=== PATIENT | female | born 1985 ===

== ENCOUNTER → 2021-04-15 09:12 | Outpatient (BNVA) | payer OTHER, SELFPAY | PROVIDERS: PCP Nurse Practitioner Family; Visit Provider Physician Assistant | DX: E11.9 Type 2 diabetes mellitus without complications (principal); E66.01 Morbid (severe) obesity due to excess calories; E78.00 Pure hypercholesterolemia, unspecified; I10 Essential (primary) hypertension | CPT/HCPCS: 99212 ==

== ENCOUNTER 2021-04-26 11:37 | Outpatient (REF) | payer OTHER, SELFPAY ==
--- NOTE | ~2021-04-26 | XR_ITS ---
EXAMINATION: XR CHEST CLINICAL INFORMATION: Obesity COMPARISON: Previous chest x-ray January 2019 TECHNIQUE: 2 views of the chest were obtained. FINDINGS: No significant abnormality is noted involving the heart, lungs, mediastinum, bony thorax or soft tissues. XR/XR chest 2V IMPRESSION: Unremarkable examination.
--- NOTE | 2021-04-26 11:46 | ECG_ITS ---
Test Reason : OBESITY Blood Pressure : / mmHG Vent. Rate : 077 BPM Atrial Rate : 077 BPM P-R Int : 148 ms QRS Dur : 138 ms QT Int : 446 ms P-R-T Axes : 041 -30 073 degrees QTc Int : 504 ms Normal sinus rhythm Left axis deviation Left bundle branch block Abnormal ECG When compared with ECG of 08-JAN-2019 08:44, Left bundle branch block is now Present Referred By: Nayeli Rice Electronically Signed By:Perry Dejesus
[2021-04-26 13:21] LABS: MANUAL DIFF FLAG NO
[2021-04-26 13:27] LABS: Basophils Percent Auto 0.4 % (0-2); Eosinophils Absolute Auto 0.1 X10*3/uL (0.0-0.4); Eosinophils Percent Auto 1.6 % (0-4); Hematocrit 37.5 % (37-47); Hemoglobin 12.2 g/dl (12.0-16.0); Imm Gran Abs Auto 0.01 X10*3/uL (0.00-0.03); Imm Gran Pct Auto 0.2 % (0.0-0.4); Lymphocytes Absolute Auto 1.7 X10*3/uL (1.2-4.9); Lymphocytes Percent Auto 35.4 % (20-40); Mean Corpuscular HGB Conc 32.5 g/dl (31.0-35.0); Mean Corpuscular Hemoglobin 28.5 pg (27.0-33.0); Mean Corpuscular Volume 87.6 fL (80-98); Mean Platelet Volume 11.7 fL (9.4-12.3); Monocytes Absolute Auto 0.3 X10*3/uL (0.1-1.2); Monocytes Percent Auto 5.9 % (2-11); Neutrophils Absolute Auto 2.8 X10*3/uL (2.0-8.3); Neutrophils Percent Auto 56.5 % (45-73); Platelet Count 206 X10*3/uL (160-400); Red Blood Count 4.28 X10*6/uL (4.20-5.50); White Blood Count 4.9 X10*3/uL (4.8-10.8)
[2021-04-26 13:36] LABS: Estimated Average Glucose 160 mg/dL; Hemoglobin A1c % 7.2 %
[2021-04-26 13:44] LABS: Alanine Aminotransferase 28 U/L (0-31); Albumin Level 4.3 g/dL (3.5-5.0); Alkaline Phosphatase 59 U/L (39-117); Anion Gap 12 (12-20); Aspartate Amino Transferase 23 U/L (5-31); Bilirubin Total 0.6 mg/dL (0.0-1.0); Blood Urea Nitrogen 7 mg/dL (9-16); C Reactive Protein 0.35 mg/dL (< or = 0.50); Calcium 9.1 mg/dL (8.4-10.2); Carbon Dioxide 27 mmol/L (22-29); Chloride 104 mmol/L (96-108); Cholesterol 234 mg/dL; Estimated Glomerular Filt Rate > 60; Glucose Random 105 mg/dL (60-115); HDL Cholesterol 39 mg/dL; Iron 49 mcg/dL (30-160); LDL Cholesterol Calculated 123 mg/dl; Percent Iron Saturation 13 % (15-50); Potassium 3.7 mmol/L (3.3-5.1); Sodium 139 mmol/L (135-145); Total Iron Binding Capacity 379 mcg/dL (228-428); Total Protein 7.1 g/dL (6.5-8.0); Triglycerides 362 mg/dL; Unsaturated Iron Binding 330 ug/dL
[2021-04-26 14:08] LABS: Ferritin 56 ng/mL (10-122); TSH reflex Free T4 2.05 uIU/mL (0.32-4.0); Vitamin D 25-OH Total 12.9 ng/mL (>30)
[2021-04-26 14:15] LABS: Folate 15.3 ng/mL (> or = 4.0); Vitamin B12 199 pg/mL (200-900)
[2021-04-27 09:31] LABS: Insulin Level Total 10.4 uIU/mL
[2021-04-27 14:27] LABS: PTHI 83 pg/mL (14-64)
[2021-04-29 01:16] LABS: Zinc 66 mcg/dL (60-130)
[2021-05-02 08:42] LABS: Vitamin A 48 mcg/dL (38-98); Vitamin B1 9 nmol/L (8-30)
== END 2021-04-26 11:38 | disposition home or self-care (01) ==
LOC: HO.XRAY 11:37
PROVIDERS: PCP Physician Assistant Medical; Visit Provider Physician Assistant
DX: E66.01 Morbid (severe) obesity due to excess calories (principal); E11.9 Type 2 diabetes mellitus without complications; E78.00 Pure hypercholesterolemia, unspecified; I10 Essential (primary) hypertension
CPT/HCPCS: 36415; 71046; 80053; 80061; 82306; 82607; 82728; 82746; 83036; 83525; 83540; 83970; 84425; 84443; 84590; 84630; 85025; 86140; 93005

== ENCOUNTER → 2021-05-06 15:32 | Outpatient (BNVA) | payer OTHER, SELFPAY | PROVIDERS: PCP Physician Assistant Medical; Referring Provider Physician Assistant Medical; Visit Provider Physician Assistant | DX: E66.01 Morbid (severe) obesity due to excess calories (principal); I44.7 Left bundle-branch block, unspecified; F50.81 Binge eating disorder; E11.9 Type 2 diabetes mellitus without complications; E78.00 Pure hypercholesterolemia, unspecified; I10 Essential (primary) hypertension; Z68.41 Body mass index [BMI] 40.0-44.9, adult | CPT/HCPCS: 99212 ==

== ENCOUNTER → 2021-05-13 13:04 | Outpatient (BNVA) | payer OTHER, SELFPAY | PROVIDERS: PCP Physician Assistant Medical; Referring Provider Physician Assistant Medical; Visit Provider Surgery | DX: E66.9 Obesity, unspecified (principal); Z01.818 Encounter for other preprocedural examination; E55.9 Vitamin D deficiency, unspecified; K91.2 Postsurgical malabsorption, not elsewhere classified; Z90.3 Acquired absence of stomach [part of]; E11.9 Type 2 diabetes mellitus without complications; Z68.39 Body mass index [BMI] 39.0-39.9, adult | CPT/HCPCS: 99212 ==

== ENCOUNTER 2021-06-07 11:09 | Outpatient (REF) | payer OTHER, SELFPAY ==
[2021-06-08 13:15] LABS: H Pylori Breath Test NOT DETECTED (NOT DETECTED)
== END 2021-06-07 11:10 | disposition home or self-care (01) ==
LOC: HO.LNP 11:09
PROVIDERS: Physician Assistant; PCP Physician Assistant Medical; Referring Provider Physician Assistant Medical; Visit Provider Physician Assistant
DX: E66.01 Morbid (severe) obesity due to excess calories (principal); Z68.30 Body mass index [BMI] 30.0-30.9, adult; E11.9 Type 2 diabetes mellitus without complications; E78.00 Pure hypercholesterolemia, unspecified; I10 Essential (primary) hypertension
CPT/HCPCS: 83013; 99211; 99212

== ENCOUNTER → 2021-06-10 08:34 | Outpatient (BNVA) | payer OTHER, SELFPAY | PROVIDERS: PCP Physician Assistant Medical; Visit Provider Dietitian, Registered | DX: E66.9 Obesity, unspecified (principal); Z68.39 Body mass index [BMI] 39.0-39.9, adult | CPT/HCPCS: 97802 ==

== ENCOUNTER → 2021-06-30 13:19 | Outpatient (BNVA) | payer OTHER, SELFPAY | PROVIDERS: PCP Physician Assistant Medical; Referring Provider Physician Assistant Medical; Visit Provider Internal Medicine Cardiovascular Disease | DX: I44.7 Left bundle-branch block, unspecified (principal); I10 Essential (primary) hypertension | CPT/HCPCS: 99202 ==

== ENCOUNTER → 2021-07-15 08:11 | Outpatient (BNVA) | payer OTHER, SELFPAY | PROVIDERS: PCP Physician Assistant Medical; Referring Provider Physician Assistant Medical; Visit Provider Dietitian, Registered | DX: E66.9 Obesity, unspecified (principal); Z68.39 Body mass index [BMI] 39.0-39.9, adult | CPT/HCPCS: 99212 ==

== ENCOUNTER → 2021-08-02 11:12 | Outpatient (BNVA) | payer OTHER, SELFPAY | PROVIDERS: PCP Physician Assistant Medical; Referring Provider Physician Assistant Medical; Visit Provider Surgery | DX: E66.9 Obesity, unspecified (principal); Z68.39 Body mass index [BMI] 39.0-39.9, adult | CPT/HCPCS: 99212 ==

== ENCOUNTER → 2021-08-16 08:08 | Outpatient (BNVA) | payer OTHER, SELFPAY | PROVIDERS: PCP Physician Assistant Medical; Referring Provider Surgery; Visit Provider Dietitian, Registered | DX: E66.9 Obesity, unspecified (principal) | CPT/HCPCS: 97803 ==

== ENCOUNTER → 2021-09-16 14:04 | Outpatient (REF) | payer OTHER, SELFPAY ==
--- NOTE | 2021-09-16 14:08 | CA_ITS ---
Transthoracic Echocardiogram Patient (Last, First, Middle): Kenia Boss, Gender: Female Date of : 1985 Age: 35 Procedure Date: 09/16/2021 Procedure Type: Transthoracic Echocardiogram Location: OP Height: 157.48 cm Weight: 98.43 kg BSA: 1.98 m2 Heart Rate: bpm BP: 138 / 70 mmHg Chief Clerk Shelter: Referring MD: Perry Dejesus MD Symptoms: I44.7 - Left bundle-branch block, unspecified Study Quality: Fair/Good w contrast ECG Rhythm: Sinus, LBBB Conclusions: - The left ventricular systolic function is normal. The visually estimated ejection fraction is between 55-60%. - There is paradoxical septal motion consistent with a left bundle branch block. - No obvious valvular pathology seen on this study. Findings Procedure Information Contrast agent, definity, is being given per protocol without apparent complications. Left Ventricle Normal left ventricular cavity size. There is mildly increased left ventricular wall thickness. The left ventricular systolic function is normal. The visually estimated ejection fraction is between 55-60%. There is paradoxical septal motion consistent with a left bundle branch block. Diastolic function is normal for age. Right Ventricle Normal right ventricular cavity size and systolic function. Atria Both atria are normal in size. Aortic Valve The aortic valve was not well visualized. There is no aortic valve stenosis. There is no aortic valve regurgitation. Mitral Valve The mitral valve appears normal. There is no mitral valve regurgitation. There is no mitral valve stenosis. Pulmonic Valve The pulmonic valve was not well visualized. Tricuspid Valve Normal tricuspid valve structure. There is no tricuspid valve regurgitation. Tricuspid regurgitation envelope is inadequate for calculation of right ventricular systolic pressure. Great Vessels The aortic annulus, sinuses of valsalva, and asc aorta are normal in size. Venous The inferior vena cava is normal in size and collapses greater than 50% with inspiration. Pericardium/Pleural There is no evidence of pericardial effusion. Prior Study Comparison No prior study available for comparison. Recommendations, Care & Conclusions No obvious valvular pathology seen on this study. Measurements 2D Linear Measurements IVSd: 1.10 0.6-0.9/0.6-1.0 cm LVIDd: 4.93 3.9-5.3/4.2-5.9 cm LVIDd Index: 2.49 2.4-3.2/2.2-3.1 cm/m2 LVIDs: 3.10 2.0-3.6 cm LVPWd: 1.08 0.7-1.1 cm Ao Root: 2.90 2.1-3.5 cm LA Diam: 3.50 2.7-3.8/3.0-4.0 cm LAIDs Index: 1.77 1.5-2.3 cm/m2 LV Mass: 249.19 67-162/88-224 g LV Mass Index: 125.85 43-95/49-115 g/m2 LVOT Diam: 2.00 3.0+(-)1.3 cm 2D Systolic Function EF 4C: 69.30 >55% EF 2C: 59.30 >55% EF BiP: 64.00 >55% Mitral Valve MV Pk E: 0.93 MV PK A: 0.98 MV Decel Time: 129.00 E/A: 0.90 E'Lateral: 9.57 E'Medial: 5.66 E/E' Med: 16.30 E/E' Lat: 9.70 PHT: 38.00 MVA PHT: 5.79 Decel [place]: 7.15 Aortic Valve AoV Pk Estuardo: 1.39 AoV Mn Estuardo: 0.97 AoV VTI: 0.25 AoV Pk Grad: 8.00 Aov Mn Grad: 4.00 ANA MARÍA Cont.VTI: 1.90 LVOT LVOT Pk Estuardo: 0.88 LVOT Mn Estuarod: 0.58 LVOT VTI: 0.15 LVOT Pk Grad: 3.00 LVOT Mn Grad: 2.00 LVOT Diam: 2.00 LVOT Area: 3.14 Diastolic Function MV Pk E: 0.93 MV Pk A: 0.98 E/A: 0.90 E'Medial: 5.66 E/E' Med: 16.30 E' Laterial: 9.57 E/E' Lat: 9.70 Right Ventricle TAPSE (mm): 27.00 Great Vessels Aorta Ao Root-2D: 2.90 2.0-3.7 cm Ao Asc: 3.00 2.1-3.4 cm Pulmonary Valve PV Pk Estuardo: 1.37 Peak PV Grad: 8.00 Updated in Other Vendor System with Status of Final Stevenson Acuna MD electronically signed on 09/17/2021 3:17:19 PM with status of Final
== END ==
LOC: HO.CARD 14:04
PROVIDERS: PCP Physician Assistant Medical; Visit Provider Internal Medicine Cardiovascular Disease
DX: I44.7 Left bundle-branch block, unspecified (principal)
CPT/HCPCS: 93306; Q9957

== ENCOUNTER → 2021-10-03 13:35 | Outpatient (BNVA) | payer OTHER, SELFPAY | PROVIDERS: PCP Physician Assistant Medical; Referring Provider Physician Assistant Medical; Visit Provider Physician Assistant | DX: E66.9 Obesity, unspecified (principal); I10 Essential (primary) hypertension; Z68.39 Body mass index [BMI] 39.0-39.9, adult | CPT/HCPCS: 99212 ==

== ENCOUNTER → 2021-10-04 08:10 | Outpatient (BNVA) | payer OTHER, SELFPAY | PROVIDERS: PCP Physician Assistant Medical; Referring Provider Physician Assistant; Visit Provider Dietitian, Registered | DX: E66.9 Obesity, unspecified (principal) | CPT/HCPCS: 97803 ==

== ENCOUNTER → 2021-10-25 14:49 | Outpatient (BNVA) | payer OTHER, SELFPAY | PROVIDERS: PCP Physician Assistant Medical; Referring Provider Physician Assistant Medical; Visit Provider Physician Assistant | DX: E66.9 Obesity, unspecified (principal); I44.7 Left bundle-branch block, unspecified; I10 Essential (primary) hypertension; E11.9 Type 2 diabetes mellitus without complications; Z68.39 Body mass index [BMI] 39.0-39.9, adult | CPT/HCPCS: 99212 ==

== ENCOUNTER 2021-11-11 10:34 | Outpatient (REF) | payer OTHER, SELFPAY ==
[2021-11-11 11:35] LABS: Binax Internal Control QC Valid; Binax Now Covid-19 Ag Negative (Negative)
== END 2021-11-11 10:35 | disposition home or self-care (01) ==
LOC: HO.LAB 10:34
PROVIDERS: Visit Provider Internal Medicine
DX: Z20.822 Contact with and (suspected) exposure to COVID-19 (principal)
CPT/HCPCS: 36415; C9803

== ENCOUNTER → 2021-12-05 11:12 | Outpatient (BNVA) | payer OTHER, SELFPAY | PROVIDERS: PCP Physician Assistant Medical; Visit Provider Physician Assistant ==

== ENCOUNTER → 2021-12-13 08:07 | Outpatient (BNVA) | payer OTHER, SELFPAY | PROVIDERS: PCP Physician Assistant Medical; Referring Provider Physician Assistant; Visit Provider Dietitian, Registered | DX: E66.01 Morbid (severe) obesity due to excess calories (principal); E11.9 Type 2 diabetes mellitus without complications | CPT/HCPCS: 97803 ==

== ENCOUNTER → 2021-12-22 14:03 | Outpatient (BNVA) | payer OTHER, SELFPAY | PROVIDERS: PCP Physician Assistant Medical; Referring Provider Physician Assistant Medical; Visit Provider Internal Medicine Cardiovascular Disease | DX: I44.7 Left bundle-branch block, unspecified (principal); I10 Essential (primary) hypertension; R00.2 Palpitations | CPT/HCPCS: 93005; 99212 ==

== ENCOUNTER → 2021-12-28 08:08 | Outpatient (BNVA) | payer OTHER, SELFPAY | PROVIDERS: PCP Physician Assistant Medical; Visit Provider Physician Assistant ==

== ENCOUNTER → 2022-01-06 07:36 | Outpatient (REF) | payer OTHER, SELFPAY ==
--- NOTE | 2022-01-06 07:39 | HM_ITS ---
Conclusion: 1. Patient was monitored for total period of 3 days and 7 hours 2. Baseline was normal sinus rhythm with average heart rate of 93 beats per minute 3. Frequent sinus tachycardia noted with total burden of 31% 4. No significant pauses or bradycardia noted 5. Very rare PACs noted 6. No patient reported events MTDD
== END ==
LOC: HO.CARD 07:36
PROVIDERS: Visit Provider Internal Medicine Cardiovascular Disease
DX: R00.2 Palpitations (principal)
CPT/HCPCS: 93242

== ENCOUNTER 2022-01-07 08:44 | Outpatient (REF) | payer OTHER, SELFPAY ==
[2022-01-07 09:30] LABS: Estimated Average Glucose 160 mg/dL; Hemoglobin A1c % 7.2 %
[2022-01-07 09:45] LABS: Cholesterol 206 mg/dL; HDL Cholesterol 39 mg/dL; LDL Cholesterol Calculated 109 mg/dl; Triglycerides 293 mg/dL
[2022-01-07 10:08] LABS: TSH reflex Free T4 1.51 uIU/mL (0.32-4.0)
[2022-01-09 08:38] LABS: Folate 18.4 ng/mL (> or = 4.0); Vitamin B12 376 pg/mL (200-900)
[2022-01-09 13:35] LABS: PTHI 56 pg/mL (14-64)
[2022-01-12 10:11] LABS: Vitamin A 53 mcg/dL (38-98)
[2022-01-17 13:46] LABS: Vitamin B1 11 nmol/L (8-30)
== END 2022-01-07 08:45 | disposition home or self-care (01) ==
LOC: HO.LAB 08:44
PROVIDERS: PCP Physician Assistant Medical; Visit Provider Physician Assistant
DX: I44.7 Left bundle-branch block, unspecified (principal); E11.9 Type 2 diabetes mellitus without complications; E66.01 Morbid (severe) obesity due to excess calories
CPT/HCPCS: 36415; 80061; 82306; 82607; 82746; 83036; 83970; 84425; 84443; 84590

== ENCOUNTER → 2022-01-11 12:20 | Outpatient (BNVA) | payer OTHER, SELFPAY | PROVIDERS: PCP Physician Assistant Medical; Referring Provider Physician Assistant Medical; Visit Provider Physician Assistant Surgical ==

== ENCOUNTER → 2022-02-03 08:16 | Outpatient (BNVA) | payer OTHER, SELFPAY | PROVIDERS: PCP Physician Assistant Medical; Visit Provider Physician Assistant | DX: E66.01 Morbid (severe) obesity due to excess calories (principal); I44.7 Left bundle-branch block, unspecified; E11.9 Type 2 diabetes mellitus without complications; I10 Essential (primary) hypertension ==

== ENCOUNTER → 2022-02-09 08:14 | Outpatient (BNVA) | payer OTHER, SELFPAY | PROVIDERS: PCP Physician Assistant Medical; Visit Provider Physician Assistant | DX: E66.01 Morbid (severe) obesity due to excess calories (principal); I44.7 Left bundle-branch block, unspecified; E11.9 Type 2 diabetes mellitus without complications; I10 Essential (primary) hypertension ==

== ENCOUNTER → 2022-02-16 15:20 | Outpatient (BNVA) | payer OTHER, SELFPAY | PROVIDERS: PCP Physician Assistant Medical; Referring Provider Physician Assistant Medical; Visit Provider Internal Medicine Cardiovascular Disease | DX: I44.7 Left bundle-branch block, unspecified (principal); R00.2 Palpitations; I10 Essential (primary) hypertension; E11.9 Type 2 diabetes mellitus without complications | CPT/HCPCS: 99212 ==

== ENCOUNTER → 2023-02-12 14:20 | Outpatient (BNVA) | payer OTHER, SELFPAY | PROVIDERS: PCP Physician Assistant Medical; Referring Provider Physician Assistant Medical; Visit Provider Internal Medicine Cardiovascular Disease | DX: R07.9 Chest pain, unspecified (principal) | CPT/HCPCS: 93005; 99212 ==

== ENCOUNTER 2023-03-21 13:31 | Emergency (ER) | payer OTHER, SELFPAY ==
--- NOTE | ~2023-03-21 | XR_ITS ---
EXAMINATION: XR CHEST CLINICAL INFORMATION: Chest pain COMPARISON: Previous chest x-ray most recent April 2021 TECHNIQUE: 2 views of the chest were obtained. FINDINGS: No significant abnormality is noted involving the heart, lungs, mediastinum, bony thorax or soft tissues. XR/XR chest 2V IMPRESSION: Unremarkable examination.
[2023-03-21 13:38] VITALS: BP 148/92; BP 163/101; PULSE 102; PULSE 110; RESP 18; TEMP 37.5; O2SAT 97; O2SAT 98; BMI 40.4
--- NOTE | 2023-03-21 13:43 | ECG_ITS ---
Test Reason : cp Blood Pressure : / mmHG Vent. Rate : 098 BPM Atrial Rate : 098 BPM P-R Int : 142 ms QRS Dur : 142 ms QT Int : 404 ms P-R-T Axes : 040 -42 035 degrees QTc Int : 515 ms Normal sinus rhythm Left axis deviation Left bundle branch block Abnormal ECG When compared with ECG of 26-APR-2021 11:54, No significant change was found Referred By: Stu Post Electronically Signed By:Perry Dejesus
--- NOTE | 2023-03-21 13:44 | ED.CHESTPAIN ---
HPI - Chest Pain General Chief Complaint: Chest Pain Stated Complaint: CP DOWN RT ARM X 20 MINUTES Time Seen by Provider: 03/21/23 13:32 Source: patient, EMS and old records reviewed History of Present Illness HPI narrative: Patient complaining of severe right-sided chest pain that started approximately 20 minutes prior to arrival. No prior history of this type of chest pain. She does have a history of dyspnea on exertion and chest pressure on exertion recently for which she is being seen by Cardiology. She is due for cardiac CT angiogram in May. She has a history of left bundle branch block as well. She had a stress test several years ago which she passed. She denies any recent illness. This pain started spontaneously. She was driving from [place] to [place] when it occurred. It is sharp. 08/14. Worse with movement, palpation, and respirations. She denies cough or sputum. No history of asthma. Nonsmoker. No history of thromboembolic disease in this patient or her family. No recent periods of immobilization. No pedal edema or calf pain or tenderness Related Data Home Medications Medication Instructions Recorded Confirmed amlodipine 10 mg tablet 10 mg PO DAILY 04/15/21 02/12/23 atorvastatin 40 mg tablet 40 mg PO BEDTIME 04/15/21 02/12/23 losartan 100 mg tablet 100 mg PO DAILY 04/15/21 02/12/23 metformin 1,000 mg tablet 1,000 mg PO BID 04/15/21 02/12/23 mecobalamin (vitamin B12) 1,000 1,000 mcg sublingual DAILY 06/07/21 02/12/23 mcg disintegrating tablet,sublingual dulaglutide 4.5 mg/0.5 mL mg subcut QWEEK 02/12/23 02/12/23 subcutaneous pen injector (Trulicity) empagliflozin 25 mg tablet 25 mg PO DAILY 02/12/23 02/12/23 (Jardiance) glipizide 5 mg tablet 5 mg PO BID 02/12/23 02/12/23 Previous Rx's Medication Instructions Recorded cholecalciferol (vitamin D3) 1,250 1,250 mcg PO QWEEK #20 caps 05/11/21 mcg (50,000 unit) capsule (D3-50 Cholecalciferol) cholecalciferol (vitamin D3) 50 50 mcg PO DAILY #30 caps 01/19/22 mcg (2,000 unit) capsule cyanocobalamin (vitamin B-12) 500 500 mcg PO DAILY #30 tabs 01/19/22 mcg tablet Allergies Allergy/AdvReac Type Severity Reaction Status Date / Time cucumber AdvReac Severe Itching Verified 02/16/22 15:27 tree and shrub pollen AdvReac Mild Itching Verified 02/16/22 15:27 Review of Systems Constitutional: Comments: No recent illness fevers or chills Cardiovascular: Comments: Chest pain as described Respiratory: Comments: Pain with respirations. Dyspnea with exertion prior to today. Gastrointestinal: Comments: No abdominal pain. No nausea Genitourinary: Comments: No urinary symptoms Musculoskeletal: Comments: No pedal edema or calf pain Neurologic: Comments: No focal weakness Endocrine: Comments: History of diabetes COUNT INCLUDES THE [facility] Past Medical History Medical History (Updated 03/21/23 @ 16:54 by Stu Post MD) Diabetes mellitus type II, controlled High cholesterol Hypertension LBBB (left bundle branch block) Obesity Vitamin D deficiency Surgical History (Updated 02/12/23 @ 15:04 by CANDICE Brooks) H/O ovarian cystectomy History of hysterectomy Hx of nasal septoplasty S/P GEOVANNA-BSO Family History Family History Mother Hypertension Diabetes Hypercholesteremia Arthritis Carpal tunnel syndrome Father Heart attack Hypertension Sister Endometriosis Social History Social History Alcohol intake: never Patient Tobacco Use Status: Never used Tobacco Smoked in Last 30 Days: No Use of substances other than those prescribed or required for medical reasons: No Advance Directives: No Advance Directives Information Provided: No Physical Exam Vital Signs: Vital Signs: Last Vital Signs Temp 99.2 F 03/21/23 15:52 Pulse 94 03/21/23 15:52 Resp 16 03/21/23 15:52 BP 150/98 H 03/21/23 15:52 Pulse Ox 97 03/21/23 15:52 O2 Del Method Room Air 03/21/23 15:52 BMI result Body Mass Index 40.4 Const: Other: Awake and alert. Appears uncomfortable Chest: Other: Right chest wall tender to palpation. Reproduces symptoms. Resp: Other: Clear bilaterally. Diminished on right Cardio: Other: Regular rate and rhythm without murmurs rubs or gallops GI: Other: Soft nontender nondistended. Normoactive bowel sounds. No flank tenderness Skin: Other: Warm pink and dry. No rash in distribution of pain. Neuro: Other: No focal deficits Extrem: Other: No calf tenderness or pedal edema. Right arm with normal radial pulses. Medications Administered Discontinued Medications Generic Name Dose Route Start Last Admin Trade Name Freq PRN Reason Stop Dose Admin Sodium Chloride 500 mls @ 500 mls/hr 03/21/23 13:45 03/21/23 15:18 Ns IV 03/21/23 14:44 Infused .Q1H RAMEZ Infusion Ketorolac Tromethamine 30 mg 03/21/23 13:42 03/21/23 14:26 Ketorolac Tromethamine 15 Mg/Ml Vial IVPUSH 03/21/23 13:43 30 mg ONCE ONE Administration Medical Decision Making Medical Decision Making [facility] Narrative: Patient with severe sharp musculoskeletal type pain, but with cardiac risk factors in the process of cardiac workup. No significant thromboembolic risk factors. Will order workup including EKG, troponins, D-dimer and chest x-ray. May need more advanced imaging depending on results. 13:49. EKG shows left bundle branch block without evidence of ischemia or dysrhythmia. 16:51. Workup in the emergency department shows a normal CBC. Chemistries are normal. Two troponins are normal. Chest x-ray by Radiology interpretation is normal as well. Patient is feeling much better. She is stable for discharge home. Final diagnosis musculoskeletal chest pain Blood pressure was elevated. Will repeat. If still elevated will treat with an extra dose of amlodipine which she takes baseline Lab Data 03/21/23 13:56 03/21/23 13:56 Labs: Lab Results 03/21/23 03/21/23 03/21/23 Range/Units 13:56 13:56 13:56 WBC 8.3 (4.8-10.8) X10*3/uL RBC 4.67 (4.20-5.50) X10*6/uL Hgb 13.3 (12.0-16.0) g/dl Hct 39.4 (37.0-47.0) % MCV 84.4 (80.0-98.0) fL MCH 28.5 (27.0-33.0) pg MCHC 33.8 (31.0-35.0) g/dl RDW 14.2 (11.0-16.0) % Plt Count 171 (160-400) X10*3/uL MPV 10.8 (9.4-12.3) fL Immature Gran % (Auto) 0.4 (0.0-0.4) % Neut % (Auto) 72.9 (45-73) % Lymph % (Auto) 17.6 L (20-40) % [place] % (Auto) 8.3 (2-11) % Eos % (Auto) 0.6 (0-4) % Baso % (Auto) 0.2 (0-2) % Lymph # (Auto) 1.5 (1.2-4.9) X10*3/uL [place] # (Auto) 0.7 (0.1-1.2) X10*3/uL Eos # (Auto) 0.1 (0.0-0.4) X10*3/uL Baso # (Auto) 0.0 (0.0-0.2) X10*3/uL Abs Immat Gran (auto) 0.03 (0.00-0.03) X10*3/uL Absolute Neuts (auto) 6.1 (2.0-8.3) x10*3/uL Absolute Nucleated RBC 0.000 (0.0-0.012) X10*3/uL Nucleated RBC % (auto) 0.0 (0.0-0.2) /100WBC PT 9.4 L (10.0-13.1) SEC INR 0.8 L (0.9-1.1) D-Dimer High Sensitivty 189 NG/ML Sodium 136 (135-145) mmol/L Potassium 3.3 (3.3-5.1) mmol/L Chloride 101 (96-108) mmol/L Carbon Dioxide 26 (22-29) mmol/L Anion Gap 12 (12-20) BUN 8 L (9-16) mg/dL Creatinine 0.63 (0.5-1.4) mg/dL Estim Creat Clear Calc 139.1 Estimated GFR > 60 Random Glucose 144 H (60-115) mg/dL Calcium 9.1 (8.4-10.2) mg/dL Total Bilirubin 0.8 (0.0-1.0) mg/dL AST 20 (5-31) U/L ALT 29 (0-31) U/L Alkaline Phosphatase 79 (39-117) U/L Troponin I High Sens (<3.5-17.0) ng/L Total Protein 7.3 (6.5-8.0) g/dL Albumin 4.3 (3.5-5.0) g/dL COVID-19 (SUE) (Negative) COVID-19 Clin Com 03/21/23 03/21/23 03/21/23 Range/Units 13:56 13:56 15:59 WBC (4.8-10.8) X10*3/uL RBC (4.20-5.50) X10*6/uL Hgb (12.0-16.0) g/dl Hct (37.0-47.0) % MCV (80.0-98.0) fL MCH (27.0-33.0) pg MCHC (31.0-35.0) g/dl RDW (11.0-16.0) % Plt Count (160-400) X10*3/uL MPV (9.4-12.3) fL Immature Gran % (Auto) (0.0-0.4) % Neut % (Auto) (45-73) % Lymph % (Auto) (20-40) % [place] % (Auto) (2-11) % Eos % (Auto) (0-4) % Baso % (Auto) (0-2) % Lymph # (Auto) (1.2-4.9) X10*3/uL [place] # (Auto) (0.1-1.2) X10*3/uL Eos # (Auto) (0.0-0.4) X10*3/uL Baso # (Auto) (0.0-0.2) X10*3/uL Abs Immat Gran (auto) (0.00-0.03) X10*3/uL Absolute Neuts (auto) (2.0-8.3) x10*3/uL Absolute Nucleated RBC (0.0-0.012) X10*3/uL Nucleated RBC % (auto) (0.0-0.2) /100WBC PT (10.0-13.1) SEC INR (0.9-1.1) D-Dimer High Sensitivty NG/ML Sodium (135-145) mmol/L Potassium (3.3-5.1) mmol/L Chloride (96-108) mmol/L Carbon Dioxide (22-29) mmol/L Anion Gap (12-20) BUN (9-16) mg/dL Creatinine (0.5-1.4) mg/dL Estim Creat Clear Calc Estimated GFR Random Glucose (60-115) mg/dL Calcium (8.4-10.2) mg/dL Total Bilirubin (0.0-1.0) mg/dL AST (5-31) U/L ALT (0-31) U/L Alkaline Phosphatase (39-117) U/L Troponin I High Sens < 2.7 3.1 (<3.5-17.0) ng/L Total Protein (6.5-8.0) g/dL Albumin (3.5-5.0) g/dL COVID-19 (SUE) Negative (Negative) COVID-19 Clin Com See Note Discharge Plan Discharge Clinical Impression: Hypertension, Chest pain Patient Disposition: Home, Self-Care Instructions: Chest Pain (DC), Chronic Hypertension (DC) Prescriptions: No Action cholecalciferol (vitamin D3) [D3-50 Cholecalciferol] 1,250 mcg (50,000 unit) capsule 1,250 mcg PO QWEEK Qty: 20 1RF cyanocobalamin (vitamin B-12) 500 mcg tablet 500 mcg PO DAILY Qty: 30 6RF cholecalciferol (vitamin D3) 50 mcg (2,000 unit) capsule 50 mcg PO DAILY Qty: 30 6RF amlodipine 10 mg tablet 10 mg PO DAILY atorvastatin 40 mg tablet 40 mg PO BEDTIME losartan 100 mg tablet 100 mg PO DAILY metformin 1,000 mg tablet 1,000 mg PO BID mecobalamin (vitamin B12) 1,000 mcg tablet,disintegrating 1,000 mcg sublingual DAILY Rx Instructions: place tablet under tongue and allow to dissolve for at least30 secs before swallowing Jardiance 25 mg tablet 25 mg PO DAILY glipizide 5 mg tablet 5 mg PO BID Trulicity 4.5 mg/0.5 mL pen injector subcut QWEEK
--- NOTE | 2023-03-21 13:45 | PC.NURSE ---
pt AOX3, reporting right chest pain radiating down arm. 08/14. tech in doing EKG, will draw labs and insert IV.
[2023-03-21 13:49] VITALS: PULSE 100; RESP 20; O2SAT 97
[2023-03-21 14:01] LABS: MANUAL DIFF FLAG NO
[2023-03-21 14:04] LABS: Basophils Percent Auto 0.2 % (0-2); Eosinophils Absolute Auto 0.1 X10*3/uL (0.0-0.4); Eosinophils Percent Auto 0.6 % (0-4); Hematocrit 39.4 % (37.0-47.0); Hemoglobin 13.3 g/dl (12.0-16.0); Imm Gran Abs Auto 0.03 X10*3/uL (0.00-0.03); Imm Gran Pct Auto 0.4 % (0.0-0.4); Lymphocytes Absolute Auto 1.5 X10*3/uL (1.2-4.9); Lymphocytes Percent Auto 17.6 % (20-40); Mean Corpuscular HGB Conc 33.8 g/dl (31.0-35.0); Mean Corpuscular Hemoglobin 28.5 pg (27.0-33.0); Mean Corpuscular Volume 84.4 fL (80.0-98.0); Mean Platelet Volume 10.8 fL (9.4-12.3); Monocytes Absolute Auto 0.7 X10*3/uL (0.1-1.2); Monocytes Percent Auto 8.3 % (2-11); Neutrophils Absolute Auto 6.1 x10*3/uL (2.0-8.3); Neutrophils Percent Auto 72.9 % (45-73); Platelet Count 171 X10*3/uL (160-400); Red Blood Count 4.67 X10*6/uL (4.20-5.50); Red Cell Distribution Width 14.2 % (11.0-16.0); White Blood Count 8.3 X10*3/uL (4.8-10.8)
[2023-03-21 14:11] LABS: INTERNATIONAL NORM RATIO 0.8 (0.9-1.1); Prothrombin Time 9.4 SEC (10.0-13.1)
[2023-03-21 14:12] LABS: D Dimer High Sensitivity 189 NG/ML
[2023-03-21] MEDS: 0.9 % Sodium Chloride 500 ML IV (14:17)
[2023-03-21 14:19] LABS: COVID-19 Test Negative (Negative); IDNOW Serial# BCCEAD1C
[2023-03-21 14:20] LABS: Alanine Aminotransferase 29 U/L (0-31); Albumin Level 4.3 g/dL (3.5-5.0); Alkaline Phosphatase 79 U/L (39-117); Anion Gap 12 (12-20); Aspartate Amino Transferase 20 U/L (5-31); Bilirubin Total 0.8 mg/dL (0.0-1.0); Blood Urea Nitrogen 8 mg/dL (9-16); Calcium 9.1 mg/dL (8.4-10.2); Carbon Dioxide 26 mmol/L (22-29); Chloride 101 mmol/L (96-108); Creatinine Clr Calc Pharmacy 139.1; Estimated Glomerular Filt Rate > 60; Glucose Random 144 mg/dL (60-115); Potassium 3.3 mmol/L (3.3-5.1); Sodium 136 mmol/L (135-145); Total Protein 7.3 g/dL (6.5-8.0)
[2023-03-21] MEDS: Ketorolac Tromethamine 15 MG/ML VIAL 30 MG IVPUSH (14:26)
[2023-03-21 14:27] VITALS: BP 153/84; PULSE 97; RESP 24; TEMP 37.4; O2SAT 95
[2023-03-21 14:29] LABS: Troponin-I High Sensitivity < 2.7 ng/L (<3.5-17.0)
--- NOTE | 2023-03-21 15:18 | PC.NURSE ---
pt reporting pain to be3/10, much less than when she first got here.
[2023-03-21 15:52] VITALS: BP 150/98; PULSE 94; RESP 16; TEMP 37.3; O2SAT 97
[2023-03-21 16:41] LABS: Troponin-I High Sensitivity 3.1 ng/L (<3.5-17.0)
== END 2023-03-21 17:22 | disposition home or self-care (01) ==
PROVIDERS: Emergency Provider Emergency Medicine; PCP Physician Assistant Medical
DX: R07.89 Other chest pain (principal); I10 Essential (primary) hypertension; Z20.828 Contact with and (suspected) exposure to other viral communicable diseases; Z20.822 Contact with and (suspected) exposure to COVID-19; Z79.899 Other long term (current) drug therapy
CPT/HCPCS: 36415; 71046; 80053; 84484; 85025; 85379; 85610; 87635; 93005; 96361; 96374; 99284; 99285; J1885

== ENCOUNTER 2023-05-28 14:45 | Outpatient (AMB) | payer OTHER, SELFPAY ==
[2023-05-28 15:05] VITALS: BP 146/90; PULSE 86; O2SAT 99; BMI 40.1
--- NOTE | 2023-05-28 15:05 | MHC.OFFVIS ---
Intake Vital Signs 05/28/23 15:05 Height 5 ft 3 in Weight 226 lb 3.108 oz BMI 40.1 BP 146/90 H Blood Pressure Location Rt brachial Position Sitting Pulse 86 Pulse Source Pulse Oximeter Pulse Oximetry (%) 99 Oxygen Delivery Method Room Air Intake Visit Reasons: 3 mth fu after CTA/PFT Intake Note: Patient is here for 3 months follow up after CTA/ PFT, patient stated she had CTA at [facility] but she never received a call for the PFT test Allergies cucumber Adverse Reaction (Severe, Verified 05/28/23 15:09) Itching tree and shrub pollen Adverse Reaction (Mild, Verified 05/28/23 15:09) Itching Medication List - Last Reconciled 05/28/23 by Perry Dejesus MD amlodipine 10 mg PO DAILY atorvastatin 40 mg PO BEDTIME cholecalciferol (vitamin D3) (D3-50 Cholecalciferol) 1,250 mcg PO QWEEK cholecalciferol (vitamin D3) 50 mcg PO DAILY cyanocobalamin (vitamin B-12) 500 mcg PO DAILY dulaglutide (Trulicity) mg subcut QWEEK empagliflozin (Jardiance) 25 mg PO DAILY glipizide 5 mg PO BID losartan 100 mg PO DAILY mecobalamin (vitamin B12) 1,000 mcg sublingual DAILY metformin 1,000 mg PO BID HPI HPI Comments History of Present Illness Details Pleasant 37-year-old female who is here for follow-up. She has left bundle-branch block and diabetes. She also has hypertension. Her blood pressure control is good currently. She is complaining of dyspnea on exertion and chest discomfort. She is saying when she goes up 3 flights of stairs she gets out of breath and gets chest tightness. She does not have any history of asthma. She is saying she has stress testing the last couple of years which was normal. She was referred for coronary CTA. She underwent coronary CTA on 04/18/2023 which did not show any significant coronary disease. She was also referred for PFTs but it appears the PFTs were not done. 05/28/2023: She returns for follow-up today. She has no chest discomfort. She continues to complain of exertional dyspnea with stairs. Coronary CTA results were shared with the patient that she does not have any significant coronary disease to explain the symptoms. Her blood pressure is elevated and I think this needs to be better. She is following with bariatric surgery at [facility] and will be getting gastric sleeve surgery. [facility] Medical History Diabetes mellitus type II, controlled High cholesterol Hypertension LBBB (left bundle branch block) Obesity Vitamin D deficiency Surgical History H/O ovarian cystectomy History of hysterectomy Hx of nasal septoplasty S/P GEOVANNA-BSO Family History Mother Hypertension Diabetes Hypercholesteremia Arthritis Carpal tunnel syndrome Father Heart attack Hypertension Sister Endometriosis Social History Alcohol intake: never Patient Tobacco Use Status: Never used Tobacco Review of Systems Const Denies fatigue, Denies fever(s), Denies frequent falls, Denies weight gain and Denies weight loss ENT Denies dizziness Card Denies chest pain, Denies leg edema, Denies lightheadedness, Denies dyspnea, Denies dyspnea on exertion, Denies orthopnea and Reports other (loss of consciousness) Resp Denies cough, Denies dyspnea and Denies dyspnea on exertion GI Denies hematochezia and Denies change in bowel habits Musc Denies abnormal gait, Denies muscle weakness, Denies numbness, Denies radiating pain into limb and Denies tingling Neuro Denies abnormal gait, Denies dizziness, Denies frequent falls, Denies numbness and Denies tingling Endo Denies fatigue Physical Exam Vital Signs: Last Vital Signs Pulse 86 05/28/23 15:05 BP 146/90 H 05/28/23 15:05 Pulse Ox 99 05/28/23 15:05 Oxygen Delivery Method Room Air 05/28/23 15:05 BMI result Body Mass Index 40.1 GENERAL APPEARANCE: in no acute distress, pleasant. NECK: no carotid bruit, no jugular venous distention. SKIN: no suspicious lesions, warm and dry. HEART: no murmurs, regular rate and rhythm. LUNGS: clear to auscultation bilaterally. ABDOMEN: soft, nontender. EXTREMITIES: no edema. PERIPHERAL PULSES: equal. NEUROLOGIC: No gross deficits, AAO X 3 Assessment & Plan Assessment & Plan (1) VALLE (dyspnea on exertion): Code(s): R06.09 - Other forms of dyspnea (2) LBBB (left bundle branch block): Code(s): I44.7 - Left bundle-branch block, unspecified (3) Hypertension: Code(s): I10 - Essential (primary) hypertension Plan Pleasant 37-year-old female who is here for follow-up. She has history of diabetes, hypertension and left bundle-branch block. She had coronary CTA performed in April 2023 which showed no significant coronary disease. She is on atorvastatin 40 mg once a day for her known history of diabetes. LDL target is less than 70. Blood pressure is elevated. Adding carvedilol 3.125 mg twice a day. Continue amlodipine 10 mg daily and losartan 100 mg daily. Referring her for PFTs. She is low risk for perioperative cardiovascular complications. Thank you for allowing me to participate in the care of your patient. Please feel free to contact me if you have any questions. Orders: Orders PFT pulmonary function test Today R06.09 - Other forms of dyspnea Medications: New carvedilol must administer with a meal/food 3.125 mg PO BID 100 tabs 3RF I10 - Essential (primary) hypertension Coding Level of Care Code Est Pt Level 4 (51738) Diagnoses VALLE (dyspnea on exertion) R06.09 LBBB (left bundle branch block) I44.7 Hypertension I10
== END 2023-05-28 15:28 | disposition home or self-care (01) ==
PROVIDERS: Visit Provider Internal Medicine Cardiovascular Disease
DX: R06.09 Other forms of dyspnea (principal); I44.7 Left bundle-branch block, unspecified; I10 Essential (primary) hypertension
CPT/HCPCS: 99214

== ENCOUNTER → 2023-05-28 14:45 | Outpatient (BNVA) | payer OTHER, SELFPAY | PROVIDERS: Visit Provider Internal Medicine Cardiovascular Disease | DX: I44.7 Left bundle-branch block, unspecified (principal); R06.09 Other forms of dyspnea; I10 Essential (primary) hypertension | CPT/HCPCS: 99212 ==

== ENCOUNTER 2023-06-13 08:27 | Outpatient (REF) | payer OTHER, SELFPAY ==
--- NOTE | 2023-06-13 09:20 | PFT_ITS ---
FLOWS: 1. FEV1 90% of predicted at 2.58 L. 2. FVC 82% of predicted at 2.84 L. 3. FEV1 to FVC ratio of 0.91. 4. No bronchodilator response. LUNG VOLUMES: 1. Total lung capacity 84% of predicted at 4.03 L. 2. Residual volume 76% of predicted at 1.11 L. 3. Slow vital capacity 88% of predicted at 2.92 L. 4. Expiratory reserve volume 47% of predicted at 0.55 L. 5. Diffusion capacity is normal. IMPRESSION: No obstructive or restrictive ventilatory defect. No bronchodilator response. Decreased expiratory reserve volume suggests extrathoracic restriction, likely secondary to abdominal obesity. Giuseppe Stanton MD AP/MODL / [id number]
== END 2023-06-13 08:28 | disposition home or self-care (01) ==
LOC: HO.RESP 08:27
PROVIDERS: PCP Physician Assistant Medical; Visit Provider Internal Medicine Cardiovascular Disease
DX: R07.9 Chest pain, unspecified (principal)
CPT/HCPCS: 94060; 94727; 94729

== ENCOUNTER → 2023-06-13 09:20 | Outpatient (BNV) | payer OTHER, SELFPAY | PROVIDERS: PCP Physician Assistant Medical; Visit Provider Internal Medicine Pulmonary Disease | DX: R06.09 Other forms of dyspnea (principal) | CPT/HCPCS: 94060; 94727; 94729 ==

== ENCOUNTER 2023-10-03 15:20 | Outpatient (AMB) | payer OTHER, SELFPAY ==
[2023-10-03 15:29] VITALS: BP 140/70; PULSE 83; BMI 36.7
--- NOTE | 2023-10-03 15:29 | A.OFFVIS_ITS ---
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 Accompanied by: Self / Same As Patient Allergies cucumber Adverse Reaction (Severe, Verified 10/03/23 15:32) Itching tree and shrub pollen Adverse Reaction (Mild, Verified 10/03/23 15:32) Itching Medication List - Last Reconciled 10/03/23 by Perry Dejesus MD acetaminophen mg PO amlodipine 10 mg PO DAILY atorvastatin 40 mg PO BEDTIME carvedilol 3.125 mg PO BID cholecalciferol (vitamin D3) (D3-50 Cholecalciferol) 1,250 mcg PO QWEEK cholecalciferol (vitamin D3) 50 mcg PO DAILY cyanocobalamin (vitamin B-12) 500 mcg PO DAILY empagliflozin (Jardiance) 25 mg PO DAILY glipizide 5 mg PO BID losartan 100 mg PO DAILY mecobalamin (vitamin B12) 1,000 mcg sublingual DAILY metformin ER 500 mg PO DAILY pantoprazole 40 mg PO DAILY ursodiol 300 mg PO BID HPI HPI Comments History of Present Illness Details Pleasant 37-year-old female who is here for follow-up. She has left bundle-branch block and diabetes. She also has hypertension. Her blood pressure control is good currently. She is complaining of dyspnea on exertion and chest discomfort. She is saying when she goes up 3 flights of stairs she gets out of breath and gets chest tightness. She does not have any history of asthma. She is saying she has stress testing the last couple of years which was normal. She was referred for coronary CTA. She underwent coronary CTA on 04/18/2023 which did not show any significant coronary disease. She was also referred for PFTs but it appears the PFTs were not done. 05/28/2023: She returns for follow-up to day. She has no chest discomfort. She continues to complain of exertional dyspnea with stairs. Coronary CTA results were shared with the patient that she does not have any significant coronary disease to explain the symptoms. Her blood pressure is elevated and I think this needs to be better. She is following with bariatric surgery at [facility] and will be getting gastric sleeve surgery. 10/03/23: She returns for follow-up. B lood pressure is mildly elevated. She is status post gastric bypass surgery. Taking medication regularly. No other complaints currently. [facility] Medical History Diabetes mellitus type II, controlled High cholesterol Hypertension LBBB (left bundle branch block) Obesity Vitamin D deficiency Surgical History History of hysterectomy S/P GEOVANNA-BSO Hx of nasal septoplasty H/O ovarian cystectomy Family History Mother Hypertension Diabetes Hypercholesteremia Arthritis Carpal tunnel syndrome Father Heart attack Hypertension Sister Endometriosis Social History Alcohol intake: never Patient Tobacco Use Status: Never used Tobacco Review of Systems Const Reports chills, Reports fatigue, Reports fever(s), Reports frequent falls, Reports weakness, Reports weight gain and Reports weight loss ENT Reports dizziness Card Reports chest pain, Reports leg edema, Reports lightheadedness, Reports palpitations, Reports dyspnea and Reports dyspnea on exertion Resp Reports cough, Reports dyspnea and Reports dyspnea on exertion GI Reports hematochezia Musc Reports abnormal gait, Reports muscle weakness, Reports numbness, Reports radiating pain into limb and Reports tingling Neuro Reports abnormal gait, Reports dizziness, Reports frequent falls, Reports numbness, Reports tingling and Reports weakness Endo Reports fatigue and Reports palpitations Physical Exam Vital Signs: BMI result Body Mass Index 36.7 GENERAL APPEARANCE: in no acute distress, pleasant. NECK: no carotid bruit, no jugular venous distention. SKIN: no suspicious lesions, warm and dry. HEART: no murmurs, regular rate and rhythm. LUNGS: clear to auscultation bilaterally. ABDOMEN: soft, nontender. EXTREMITIES: no edema. PERIPHERAL PULSES: equal. NEUROLOGIC: No gross deficits, AAO X 3 Assessment & Plan Assessment & Plan (1) LBBB (left bundle branch block): Code(s): I44.7 - Left bundle-branch block, unspecified (2) Hypertension: Code(s): I10 - Essential (primary) hypertension Plan Pleasant 37-year-old female who is here for follow-up. Blood pressure is mildly elevated. I have advised her to increase the carvedilol to 6.25 mg twice a day. Continue the medications as before. She underwent bariatric surgery so fully with weight loss or blood pressure will start improving. Chronic left bundle-branch block. Thank you for allowing me to participate in the care of your patient. Please feel free to contact me if you have any questions. Medications: New carvedilol must administer with a meal/food 6.25 mg PO BID 120 tabs 4RF Discontinued carvedilol must administer with a meal/food Discontinued Reason: None 3.125 mg PO BID 100 tabs 3RF I10 - Essential (primary) hypertension Coding Level of Care Code Est Pt Level 4 (66833) Diagnoses LBBB (left bundle branch block) I44.7 Hypertension I10
== END 2023-10-03 15:49 | disposition home or self-care (01) ==
PROVIDERS: PCP Physician Assistant Medical; Visit Provider Internal Medicine Cardiovascular Disease
DX: I44.7 Left bundle-branch block, unspecified (principal); I10 Essential (primary) hypertension
CPT/HCPCS: 99214

== ENCOUNTER → 2023-10-03 15:20 | Outpatient (BNVA) | payer OTHER, SELFPAY | PROVIDERS: PCP Physician Assistant Medical; Visit Provider Internal Medicine Cardiovascular Disease | DX: I44.7 Left bundle-branch block, unspecified (principal); I10 Essential (primary) hypertension | CPT/HCPCS: 99212 ==

== ENCOUNTER 2024-02-06 15:12 | Outpatient (AMB) | payer OTHER, SELFPAY ==
[2024-02-06 15:23] VITALS: BP 110/72; PULSE 83; BMI 34.4
--- NOTE | 2024-02-06 15:23 | A.OFFVIS_ITS ---
Intake Vital Signs 02/06/24 15:23 Height 5 ft 3 in Weight 194 lb 0.108 oz BMI 34.4 BP 110/72 Blood Pressure Location Lt brachial Position Sitting Pulse 83 Intake Visit Reasons: 4 mth fu Intake Note: pt its here for a 4 mth f/up/ pt states that she its doing fine, with no cardiac symptoms. 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 Accompanied by: Self / Same As Patient Allergies cucumber Adverse Reaction (Severe, Verified 10/03/23 15:32) Itching tree and shrub pollen Adverse Reaction (Mild, Verified 10/03/23 15:32) Itching Medication List - Last Reconciled 02/06/24 by Perry Dejesus MD acetaminophen mg PO amlodipine 10 mg PO DAILY atorvastatin 40 mg PO BEDTIME carvedilol 6.25 mg PO BID cholecalciferol (vitamin D3) (D3-50 Cholecalciferol) 1,250 mcg PO QWEEK cholecalciferol (vitamin D3) 50 mcg PO DAILY cyanocobalamin (vitamin B-12) 500 mcg PO DAILY empagliflozin (Jardiance) 25 mg PO DAILY losartan 100 mg PO DAILY mecobalamin (vitamin B12) 1,000 mcg sublingual DAILY metformin 1,000 mg PO DAILY pantoprazole 40 mg PO DAILY ursodiol 300 mg PO BID HPI HPI Comments History of Present Illness0 Details Pleasant 38-year-old female who is here for follow-up. She has left bundle-branch block and diabetes. She also has hypertension. Her blood pressure control is good currently. She is complaining of dyspnea on exertion and chest discomfort. She is saying when she goes up 3 flights of stairs she gets out of breath and gets chest tightness. She does not have any history of asthma. She is saying she has stress testing the last couple of years which was normal. She was referred for coronary CTA. She underwent coronary CTA on 04/18/2023 which did not show any significant coronary disease. She was also referred for PFTs but it appears the PFTs were not done. 05/28/2023: She returns for follow-up to day. She has no chest discomfort. She continues to complain of exertional dyspnea with stairs. Coronary CTA results were shared with the patient that she does not have any significant coronary disease to explain the symptoms. Her blood pressure is elevated and I think this needs to be better. She is following with bariatric surgery at [facility] and will be getting gastric sleeve surgery. 10/03/23: She returns for follow-up. B lood pressure is mildly elevated. She is status post gastric bypass surgery. Taking medication regularly. No other complaints currently. 02/06/24: She returns for follow-up. She has been doing well. Blood pressure is well controlled. Denying chest pain or shortness of breath. Clinically stable. [facility] Medical History (Reviewed 05/28/23 @ 15:10 by Camille Rachel [facility], [facility]) Diabetes mellitus type II, controlled High cholesterol Hypertension LBBB (left bundle branch block) Obesity Vitamin D deficiency Surgical History History of hysterectomy S/P GEOVANNA-BSO Hx of nasal septoplasty H/O ovarian cystectomy Family History Mother Hypertension Diabetes Hypercholesteremia Arthritis Carpal tunnel syndrome Father Heart attack Hypertension Sister Endometriosis Social History Alcohol intake: never Patient Tobacco Use Status: Never used Tobacco Review of Systems Const Denies chills, Denies fatigue, Denies fever(s), Denies frequent falls, Denies weakness, Denies weight gain and Denies weight loss ENT Denies dizziness Card Denies chest pain, Denies leg edema, Denies lightheadedness, Denies palpitations, Denies dyspnea and Denies dyspnea on exertion Resp Denies cough, Denies dyspnea and Denies dyspnea on exertion GI Denies hematochezia Musc Denies abnormal gait, Denies muscle weakness, Denies numbness, Denies radiating pain into limb and Denies tingling Neuro Denies abnormal gait, Denies dizziness, Denies frequent falls, Denies numbness, Denies tingling and Denies weakness Endo Denies fatigue and Denies palpitations Physical Exam Vital Signs: Last Vital Signs Pulse 83 02/06/24 15:23 BP 110/72 02/06/24 15:23 BMI result Body Mass Index 34.4 GENERAL APPEARANCE: in no acute distress, pleasant. NECK: no carotid bruit, no jugular venous distention. SKIN: no suspicious lesions, warm and dry. HEART: no murmurs, regular rate and rhythm. LUNGS: clear to auscultation bilaterally. ABDOMEN: soft, nontender. EXTREMITIES: no edema. PERIPHERAL PULSES: equal. NEUROLOGIC: No gross deficits, AAO X 3 Office Procedures EKG Details: Sinus rhythm 83 beats per minute, left bundle-branch block, QTC 481 milliseconds. [id number], Complete Assessment & Plan Assessment & Plan (1) Hypertension: Code(s): I10 - Essential (primary) hypertension (2) LBBB (left bundle branch block): Code(s): I44.7 - Left bundle-branch block, unspecified Plan Pleasant 38-year-old female who is here for follow-up. Blood pressure control is better. She underwent bariatric surgery and has been losing weight. Her blood pressure is improving. She may need adjustment of blood pressure medications as blood pressure improves further. Chronic left bundle-branch block. Thank you for allowing me to participate in the care of your patient. Please feel free to contact me if you have any questions. Coding Level of Care Code Est Pt Level 3 (47396) Diagnoses Hypertension I10 LBBB (left bundle branch block) I44.7 CPT Codes EKG - CPT: 29957-[id number], Complete ([id number])
== END 2024-02-06 15:49 | disposition home or self-care (01) ==
PROVIDERS: PCP Physician Assistant Medical; Visit Provider Internal Medicine Cardiovascular Disease
DX: I10 Essential (primary) hypertension (principal); I44.7 Left bundle-branch block, unspecified
CPT/HCPCS: 93010; 99213

== ENCOUNTER → 2024-02-06 15:12 | Outpatient (BNVA) | payer OTHER, SELFPAY | PROVIDERS: PCP Physician Assistant Medical; Visit Provider Internal Medicine Cardiovascular Disease | DX: I10 Essential (primary) hypertension (principal); I44.7 Left bundle-branch block, unspecified; R94.31 Abnormal electrocardiogram [ECG] [EKG] | CPT/HCPCS: 93005; 99212 ==

== ENCOUNTER 2024-08-13 15:37 | Outpatient (AMB) | payer OTHER, SELFPAY ==
[2024-08-13 15:39] VITALS: BP 110/70; PULSE 76; BMI 32.3
--- NOTE | 2024-08-13 15:39 | A.OFFVIS_ITS ---
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 Accompanied by: Self / Same As Patient Allergies cucumber Adverse Reaction (Severe, Verified 10/03/23 15:32) Itching tree and shrub pollen Adverse Reaction (Mild, Verified 10/03/23 15:32) Itching Medication List - Last Reconciled 08/13/24 by Perry Dejesus MD amlodipine 10 mg PO DAILY atorvastatin 40 mg PO BEDTIME carvedilol 6.25 mg PO BID cholecalciferol (vitamin D3) (D3-50 Cholecalciferol) 1,250 mcg PO QWEEK cholecalciferol (vitamin D3) 50 mcg PO DAILY cyanocobalamin (vitamin B-12) 500 mcg PO DAILY empagliflozin (Jardiance) 25 mg PO DAILY gabapentin 100 mg PO DAILY losartan 100 mg PO DAILY mecobalamin (vitamin B12) 1,000 mcg sublingual DAILY metformin 500 mg PO DAILY pantoprazole 40 mg PO DAILY tirzepatide (Mounjaro) 2.5 mg subcut QWEEK ursodiol 300 mg PO BID HPI Comments Details: Pleasant 38-year-old female who is here for follow-up. She has left bundle- branch block and diabetes. She also has hypertension. Her blood pressure control is good currently. She is complaining of dyspnea on exertion and chest discomfort. She is saying when she goes up 3 flights of stairs she gets out of breath and gets chest tightness. She does not have any history of asthma. She is saying she has stress testing the last couple of years which was normal. She was referred for coronary CTA. She underwent coronary CTA on 04/18/2023 which did not show any significant coronary disease. She was also referred for PFTs but it appears the PFTs were not done. 05/28/2023: She returns for follow-up today. She has no chest discomfort. She continues to complain of exertional dyspnea with stairs. Coronary CTA results were shared with the patient that she does not have any significant coronary disease to explain the symptoms. Her blood pressure is elevated and I think this needs to be better. She is following with bariatric surgery at [facility] and will be getting gastric sleeve surgery. 10/03/23: She returns for follow-up. Blood pressure is mildly elevated. She is status post gastric bypass surgery. Taking medication regularly. No other complaints currently. 02/06/24: She returns for follow-up. She has been doing well. Blood pressure is well controlled. Denying chest pain or shortness of breath. Clinically stable. 08/13/2024: She is here for follow-up. Blood pressure is well controlled. Only complaint is that when she goes upstairs he gets some dyspnea. 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 [facility] Medical History Diabetes mellitus type II, controlled High cholesterol Hypertension LBBB (left bundle branch block) Obesity Vitamin D deficiency Surgical History History of hysterectomy S/P GEOVANNA-BSO Hx of nasal septoplasty H/O ovarian cystectomy Family History Mother Hypertension Diabetes Hypercholesteremia Arthritis Carpal tunnel syndrome Father Heart attack Hypertension Sister Endometriosis Social History Alcohol intake: never Patient Tobacco Use Status: Never used Tobacco Review of Systems Const Denies chills, Denies fatigue, Denies fever(s), Denies frequent falls, Denies weakness, Denies weight gain and Denies weight loss ENT Denies dizziness Card Denies chest pain, Denies leg edema, Denies lightheadedness, Denies palpitations, Denies dyspnea and Denies dyspnea on exertion Resp Denies cough, Denies dyspnea and Denies dyspnea on exertion GI Denies hematochezia Musc Denies abnormal gait, Denies muscle weakness, Denies numbness, Denies radiating pain into limb and Denies tingling Neuro Denies abnormal gait, Denies dizziness, Denies frequent falls, Denies numbness, Denies tingling and Denies weakness Endo Denies fatigue and Denies palpitations Physical Exam Vital Signs: Last Vital Signs Pulse 76 08/13/24 15:39 BP 110/70 08/13/24 15:39 BMI result Body Mass Index 32.3 GENERAL APPEARANCE: in no acute distress, pleasant. NECK: no carotid bruit, no jugular venous distention. SKIN: no suspicious lesions, warm and dry. HEART: no murmurs, regular rate and rhythm. LUNGS: clear to auscultation bilaterally. ABDOMEN: soft, nontender. EXTREMITIES: no edema. PERIPHERAL PULSES: equal. NEUROLOGIC: No gross deficits, AAO X 3 Assessment & Plan Assessment & Plan (1) VALLE (dyspnea on exertion): Code(s): R06.09 - Other forms of dyspnea Category: Medical (2) LBBB (left bundle branch block): Code(s): I44.7 - Left bundle-branch block, unspecified Category: Medical (3) Hypertension: Code(s): I10 - Essential (primary) hypertension Category: Medical Plan [age] year female who is here for follow-up. She has background history of left bundle-branch block and dyspnea on exertion. No cardiomyopathy. She had coronary CTA which did not show any coronary disease. She has some dyspnea on exertion especially going upstairs. I have advised her to start exercising regularly. Overall she has been doing well. Blood pressure is well controlled. She is going to follow up with us in 1 year. Coding Level of Care Code Est Pt Level 4 (19392) Diagnoses VALLE (dyspnea on exertion) R06.09 LBBB (left bundle branch block) I44.7 Hypertension I10
== END 2024-08-13 16:04 | disposition home or self-care (01) ==
PROVIDERS: PCP Physician Assistant Medical; Visit Provider Internal Medicine Cardiovascular Disease
DX: R06.09 Other forms of dyspnea (principal); I44.7 Left bundle-branch block, unspecified; I10 Essential (primary) hypertension
CPT/HCPCS: 99214

== ENCOUNTER → 2024-08-13 15:37 | Outpatient (BNVA) | payer OTHER, SELFPAY | PROVIDERS: PCP Physician Assistant Medical; Visit Provider Internal Medicine Cardiovascular Disease | DX: I44.7 Left bundle-branch block, unspecified (principal); I10 Essential (primary) hypertension; R06.09 Other forms of dyspnea; E11.9 Type 2 diabetes mellitus without complications | CPT/HCPCS: 99212 ==

== ENCOUNTER → 2025-06-02 23:59 | Outpatient (BNV) | payer OTHER, SELFPAY | PROVIDERS: PCP Physician Assistant Medical; Visit Provider Psychiatry & Neurology Neurology | DX: G56.03 Carpal tunnel syndrome, bilateral upper limbs (principal) | CPT/HCPCS: 95886; 95912 ==

== ENCOUNTER 2025-08-12 14:48 | Outpatient (AMB) | payer OTHER, SELFPAY ==
[2025-08-12 15:16] VITALS: BP 124/70; PULSE 71; BMI 30.9
--- NOTE | 2025-08-12 15:16 | A.OFFVIS_ITS ---
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 Accompanied by: Self / Same As Patient Allergies cucumber Adverse Reaction (Severe, Verified 08/12/25 15:18) Itching tree and shrub pollen Adverse Reaction (Mild, Verified 08/12/25 15:18) Itching Medication List - Last Reconciled 08/12/25 by Perry Dejesus MD amlodipine 10 mg PO DAILY atorvastatin 40 mg PO BEDTIME carvedilol 6.25 mg PO BID cholecalciferol (vitamin D3) (D3-50 Cholecalciferol) 1,250 mcg PO QWEEK cholecalciferol (vitamin D3) 50 mcg PO DAILY cyanocobalamin (vitamin B-12) 500 mcg PO DAILY gabapentin 100 mg PO DAILY losartan 100 mg PO DAILY mecobalamin (vitamin B12) 1,000 mcg sublingual DAILY metformin 500 mg PO DAILY tirzepatide (Mounjaro) 2.5 mg subcut QWEEK HPI Comments Details: Pleasant 39-year-old female who is here for follow-up. She has left bundle-branch block and diabetes. She also has hypertension. Her blood pressure control is good currently. She is complaining of dyspnea on exertion and chest discomfort. She is saying when she goes up 3 flights of stairs she gets out of breath and gets chest tightness. She does not have any history of asthma. She is saying she has stress testing the last couple of years which was normal. She was referred for coronary CTA. She underwent coronary CTA on 04/18/2023 which did not show any significant coronary disease. She was also referred for PFTs but it appears the PFTs were not done. 05/28/2023: She returns for follow-up today. She has no chest discomfort. She continues to complain of exertional dyspnea with stairs. Coronary CTA results were shared with the patient that she does not have any significant coronary disease to explain the symptoms. Her blood pressure is elevated and I think this needs to be better. She is following with bariatric surgery at [facility] and will be getting gastric sleeve surgery. 10/03/23: She returns for follow-up. Blood pressure is mildly elevated. She is status post gastric bypass surgery. Taking medication regularly. No other complaints currently. 02/06/24: She returns for follow-up. She has been doing well. Blood pressure is well controlled. Denying chest pain or shortness of breath. Clinically stable. 08/13/2024: She is here for follow-up. Blood pressure is well controlled. Only complaint is that when she goes upstairs he gets some dyspnea. 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 08/12/25: Here for follow-up. She has chronic LBBB. Previous echocardiogram was in 2020 which was normal. With left bundle-branch block there is always risk of developing cardiomyopathy in the future. We will repeat echocardiography for surveillance. She is on terms appetite and has lost 95 lb. She feels more energetic. I have advised her to start doing regular exercise. [facility] Medical History Diabetes mellitus type II, controlled High cholesterol Hypertension LBBB (left bundle branch block) Obesity Vitamin D deficiency Surgical History History of hysterectomy S/P GEOVANNA-BSO Hx of nasal septoplasty H/O ovarian cystectomy Family History Mother Hypertension Diabetes Hypercholesteremia Arthritis Carpal tunnel syndrome Father Heart attack Hypertension Sister Endometriosis Social History Alcohol intake: never Patient Tobacco Use Status: Never used Tobacco Review of Systems Const Denies daytime sleepiness, Denies difficulty sleeping, Denies snoring, Denies stops breathing during sleep and Denies weakness Card Denies chest pain, Denies rapid heart rate, Denies irregular heart rhythm, Denies claudication, Denies leg edema, Denies lightheadedness, Denies palpitations, Denies dyspnea, Denies dyspnea on exertion, Denies orthopnea, Denies paroxysmal nocturnal dyspnea and Denies slow heart rate Resp Denies cough, Denies dyspnea, Denies dyspnea on exertion and Denies snoring GI Reports no additional complaints, Denies hematochezia, Denies change in stool character and Denies dyspepsia Musc Denies abnormal gait, Denies muscle weakness and Denies numbness Neuro Denies abnormal gait, Denies numbness and Denies weakness Endo Denies palpitations Physical Exam Vital Signs: Last Vital Signs Pulse 71 08/12/25 15:16 BP 124/70 08/12/25 15:16 BMI result Body Mass Index 30.9 GENERAL APPEARANCE: in no acute distress, pleasant. NECK: no carotid bruit, no jugular venous distention. SKIN: no suspicious lesions, warm and dry. HEART: no murmurs, regular rate and rhythm. LUNGS: clear to auscultation bilaterally. ABDOMEN: soft, nontender. EXTREMITIES: no edema. PERIPHERAL PULSES: equal. NEUROLOGIC: No gross deficits, AAO X 3 Office Procedures EKG Details: NSR, right axis deviation, LBBB (old), QTc 473 msec. [id number], Complete Assessment & Plan Assessment & Plan (1) LBBB (left bundle branch block): Code(s): I44.7 - Left bundle-branch block, unspecified Category: Medical (2) Hypertension: Code(s): I10 - Essential (primary) hypertension Category: Medical Plan 39-year-old with LBBB. She is asymptomatic. She is losing significant amount of weight with Mounjaro. She is feeling more energetic. I have advised her that she should be exercising regularly which she will consider. With left bundle-branch block there is risk of cardiomyopathy in the future and we will be doing routine surveillance for her. Last echocardiogram was in 2020. We will repeat an echocardiogram to rule out any cardiomyopathy. Follow up with us in 1 year. Thank you for allowing me to participate in the care of your patient. Please feel free to contact me if you have any questions. Orders: Orders CA echo transthoracic complete Today I44.7 - Left bundle-branch block, unspecified Coding Level of Care Code Est Pt Level 4 (40154) Diagnoses LBBB (left bundle branch block) I44.7 Hypertension I10 CPT Codes EKG - CPT: 93450-[id number], Complete ([id number])
== END 2025-08-12 15:39 | disposition home or self-care (01) ==
PROVIDERS: PCP Physician Assistant Medical; Visit Provider Internal Medicine Cardiovascular Disease
DX: I44.7 Left bundle-branch block, unspecified (principal); I10 Essential (primary) hypertension
CPT/HCPCS: 93010; 99214

== ENCOUNTER → 2025-08-12 14:48 | Outpatient (BNVA) | payer OTHER, SELFPAY | PROVIDERS: PCP Physician Assistant Medical; Visit Provider Internal Medicine Cardiovascular Disease | DX: I10 Essential (primary) hypertension (principal); I44.7 Left bundle-branch block, unspecified | CPT/HCPCS: 93005; 99212 ==

== ENCOUNTER → 2025-09-24 13:48 | Outpatient (REF) | payer OTHER, SELFPAY ==
--- NOTE | 2025-09-24 13:54 | CA_ITS ---
Transthoracic Echocardiogram Patient (Last, First, Middle): Kenia Hua, Gender: Female Date of : 1985 Age: 39 Procedure Date: 09/24/2025 Procedure Type: Transthoracic Echocardiogram Location: OP Height: 160.02 cm Weight: 78.93 kg BSA: 1.82 m2 Heart Rate: bpm BP: 124 / 70 mmHg Label Tacker: ARSH Referring MD: Perry Dejesus MD Symptoms: I44.7 - Left bundle-branch block, unspecified Study Quality: Adequate ECG Rhythm: Sinus Conclusions: - The left ventricular systolic function is normal. The calculated ejection fraction is 60% by biplane method. - No obvious valvular pathology seen on this study. Findings Left Ventricle Normal left ventricular cavity size. There is mildly increased left ventricular wall thickness. The left ventricular systolic function is normal. The calculated ejection fraction is 60% by biplane method. There is no evidence of regional wall motion abnormalities. There is paradoxical septal motion consistent with a left bundle branch block. Diastolic function is normal for age. Right Ventricle Normal right ventricular cavity size and systolic function. Atria Both atria are normal in size. Aortic Valve There is a normal trileaflet aortic valve. There is no aortic valve stenosis. There is no aortic valve regurgitation. Mitral Valve The mitral valve appears normal. There is no mitral valve regurgitation. There is no mitral valve stenosis. Pulmonic Valve The pulmonic valve is likely normal. Tricuspid Valve There is no tricuspid valve regurgitation. Tricuspid regurgitation envelope is inadequate for calculation of right ventricular systolic pressure. Great Vessels The asc aorta is normal in size. Venous The inferior vena cava is normal in size. Pericardium/Pleural There is no evidence of pericardial effusion. Prior Study Comparison No significant change compared to prior study dated: 09/16/2021. Recommendations, Care & Conclusions No obvious valvular pathology seen on this study. Measurements 2D Linear Measurements IVSd: 1.04 0.6-0.9/0.6-1.0 cm LVIDd: 4.57 3.9-5.3/4.2-5.9 cm LVIDd Index: 2.51 2.4-3.2/2.2-3.1 cm/m2 LVIDs: 2.89 2.0-3.6 cm LVPWd: 1.03 0.7-1.1 cm LA Diam: 3.10 2.7-3.8/3.0-4.0 cm LAIDs Index: 1.70 1.5-2.3 cm/m2 LV Mass: 205.20 67-162/88-224 g LV Mass Index: 112.75 43-95/49-115 g/m2 LVOT Diam: 1.90 3.0+(-)1.3 cm 2D Systolic Function EF 4C: 57.10 >55% EF 2C: 61.10 >55% EF BiP: 59.60 >55% Mitral Valve MV Pk E: 0.98 MV PK A: 0.84 MV Decel Time: 182.00 E/A: 1.20 E'Lateral: 7.62 E'Medial: 5.44 E/E' Med: 18.00 E/E' Lat: 12.80 PHT: 53.00 MVA PHT: 4.15 Decel [place]: 5.37 Aortic Valve AoV Pk Estuardo: 1.58 AoV Mn Estuardo: 1.10 AoV VTI: 0.29 AoV Pk Grad: 10.00 Aov Mn Grad: 5.00 ANA MARÍA Cont.VTI: 1.89 LVOT LVOT Pk Estuardo: 0.99 LVOT Mn Estuardo: 0.68 LVOT VTI: 0.19 LVOT Pk Grad: 4.00 LVOT Mn Grad: 2.00 LVOT Diam: 1.90 LVOT Area: 2.84 Diastolic Function MV Pk E: 0.98 MV Pk A: 0.84 E/A: 1.20 E'Medial: 5.44 E/E' Med: 18.00 E' Laterial: 7.62 E/E' Lat: 12.80 Right Ventricle TAPSE (mm): 25.60 TVS' Estuardo: 14.50 Tricuspid Valve RA Press: 3.00 Great Vessels Aorta Sinus of Valsalva: 3.38 2.0-3.[address] [place]: 2.63 1.7-3.4 cm Ao Asc: 3.10 2.1-3.4 cm Pulmonary Veins Pulm Vein S/D 0.80 Updated in Other Vendor System with Status of Final Stevenson Acuna MD electronically signed on 09/26/2025 11:11:04 AM with status of Final
== END ==
LOC: HO.CARD 13:48
PROVIDERS: Visit Provider Internal Medicine Cardiovascular Disease
DX: I44.7 Left bundle-branch block, unspecified (principal)
CPT/HCPCS: 93306

== ENCOUNTER → 2025-09-24 13:54 | Outpatient (BNV) | payer OTHER, SELFPAY | PROVIDERS: Visit Provider Internal Medicine | DX: I44.7 Left bundle-branch block, unspecified (principal) | CPT/HCPCS: 93306 ==